=== PATIENT | female | born 1975 | race African-American/Black ===

== ENCOUNTER 2022-03-03 22:33 | Emergency (ER) | payer OTHER ==
[~2022-03-03] VITALS: Ht 162.6 cm; Wt 85.1 kg
[~2022-03-03 22:33] MED LIST: AZIT250T12 PO; PROAIR; PROM12.513 PO
[2022-03-04] MEDS ORDERED: IBUPROFEN 600MG TABLET PO ONE (01:00)
[2022-03-04] MEDS ORDERED: TETANUS, DIPHTHERIA, PERTUSSIS VAC/PF 0.5ML (>10YR OLD) IM ONE (01:00)
[2022-03-04] MEDS ORDERED: IBUP-2029 MT (01:42)
[2022-03-04 02:22] VITALS: BP 140/89
== END 2022-03-04 02:24 | disposition home or self-care (01) ==
LOC: ER 22:33
DX: S61.213A Laceration without foreign body of left middle finger without damage to nail, initial encounter (principal); S60.212A Contusion of left wrist, initial encounter; R03.0 Elevated blood-pressure reading, without diagnosis of hypertension; W22.8XXA Striking against or struck by other objects, initial encounter; Y93.89 Activity, other specified; Y92.89 Other specified places as the place of occurrence of the external cause; Z86.711 Personal history of pulmonary embolism
CPT/HCPCS: 73110; 73140; 81025; 90471; 90715; 99284

== ENCOUNTER 2023-11-24 17:20 | Emergency (ER) | payer MEDICAID ==
[~2023-11-24] VITALS: Ht 167.6 cm; Wt 81.0 kg
[~2023-11-24 17:20] MED LIST changes: +IBUP-2029 MT
[2023-11-24 17:32] VITALS: TEMP 98; O2SAT 100
[2023-11-24] MEDS: KETOROLAC 15MG/ML VIAL IM ONE (21:45)
[2023-11-24] MEDS ORDERED: NAPR-1176 MT (21:59)
[2023-11-24] MEDS ORDERED: LIDO700A15 TP (21:59)
[2023-11-24 22:03] VITALS: BP 145/79; PULSE 71; RESP 20
[2023-11-24] MEDS: KETOROLAC 15MG/ML VIAL IM NR (22:03)
[2023-11-24 22:08] LABS: CLARITY URINE CLEAR (CLEAR); COLOR URINE YELLOW (YELLOW); GLUCOSE URINE NEGATIVE (NEGATIVE); KETONES URINE NEGATIVE (NEGATIVE); LEUKOCYTE ESTERASE URINE NEGATIVE (NEGATIVE); NITRITE URINE NEGATIVE (NEGATIVE); OCCULT BLOOD URINE TRACE (NEGATIVE); PROTEIN URINE NEGATIVE (NEGATIVE); SPECIFIC GRAVITY URINE 1.023 (1.005-1.030)
[2023-11-24 22:43] LABS: BACTERIA URINE TRACE
[2023-11-24 22:44] LABS: RBC URINE 0-2 /hpf (0-2); SQUAMOUS EPITHELIAL CELL URINE FEW /lpf (RARE/1+); WBC URINE 0-2 /hpf (0-2)
== END 2023-11-24 22:40 | disposition home or self-care (01) ==
LOC: ER 17:37
DX: G89.29 Other chronic pain (principal); M54.50 Low back pain, unspecified; Z90.49 Acquired absence of other specified parts of digestive tract; Z98.890 Other specified postprocedural states; Z79.899 Other long term (current) drug therapy
CPT/HCPCS: 81003; 81025; 71045; 93005; 96372; 99285; J1885; Z7610